=== PATIENT | male | born 1985 | race African-American/Black ===

== ENCOUNTER 2017-07-06 19:53 | Emergency (ER) | payer OTHER ==
[~2017-07-06] VITALS: Ht 160 cm; Wt 59.0 kg
[~2017-07-06 19:53] MED LIST: NAPROSYN500 MG PO; NORCO 5-325 TA1 EACH PO; PENICILLIN VK500 M1 PO
[2017-07-06 19:58] VITALS: BP 130/77
[2017-07-06] MEDS ORDERED: NOHOMEMEDICATIONS (20:03)
[2017-07-06] MEDS ORDERED: AUGMENTIN 875-1 EACH PO (20:15)
== END 2017-07-06 20:26 | disposition home or self-care (01) ==
LOC: M.ERS 19:53
DX: S61.051A Open bite of right thumb without damage to nail, initial encounter (principal); F17.210 Nicotine dependence, cigarettes, uncomplicated; W54.0XXA Bitten by dog, initial encounter; Y93.89 Activity, other specified; Y92.89 Other specified places as the place of occurrence of the external cause; Y99.8 Other external cause status

== ENCOUNTER 2020-02-27 01:55 | Emergency (ER) | payer OTHER ==
[~2020-02-27] VITALS: Ht 170.2 cm; Wt 68.0 kg
--- NOTE | ~2020-02-27 | EKG ---
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
[~2020-02-27 01:55] MED LIST changes: +AUGMENTIN 875-1 EACH PO; +NOHOMEMEDICATIONS
[2020-02-27 02:31] LABS: ABSOLUTE BASOPHILS 0.1 thou/uL (0.0-0.2); ABSOLUTE EOSINOPHILS 0.2 thou/uL (0.0-0.7); ABSOLUTE LYMPHOCYTES 2.3 thou/uL (0.8-5.3); ABSOLUTE MONOCYTES 0.4 thou/uL (0.0-1.2); ABSOLUTE NEUTROPHILS 2.5 thou/uL (1.6-8.1); BASOPHILS 0.9 %; EOSINOPHILS 4.2 %; HEMATOCRIT 45.1 % (42.0-52.0); LYMPHOCYTES 41.6 %; MCH 35.4 pg (26.0-34.0); MCHC 35.5 g/dL (28.0-37.0); MCV 99.7 fL (80.0-100.0); MONOCYTES 7.8 %; MPV 8.7 fl. (7.2-11.1); NUCLEATED RBCS 0 /100WBC; PLATELET COUNT* 220 thou/uL (150-400); POLYS 45.5 %; RBC 4.53 mil/uL (4.50-6.00); RDW-CV 13.3 % (10.5-14.5); WBC 5.6 thou/uL (4.0-11.0)
[2020-02-27 02:40] LABS: APTT 27.3 Seconds (25.0-31.3); PROTIME 10.6 Seconds (9.20-11.50)
[2020-02-27 02:42] LABS: CALCIUM 8.9 mg/dL (8.5-10.1); CREATININE 1.2 mg/dL (0.6-1.3); POTASSIUM 3.8 mmol/L (3.5-5.1)
[2020-02-27 03:03] LABS: ALBUMIN 4.3 g/dL (3.4-5.0); CK-MB MASS 0.9 ng/mL (<0.5-3.6); MAGNESIUM 1.8 mg/dL (1.8-2.4); TOTAL BILIRUBIN 0.4 mg/dL (<0.1-1.0); TOTAL PROTEIN 7.6 g/dL (6.4-8.2)
[2020-02-27 03:26] VITALS: BP 141/77
== END 2020-02-27 03:27 | disposition home or self-care (01) ==
LOC: M.ERS 01:55
PROVIDERS: Family Medicine
DX: R51 Headache (principal); F17.210 Nicotine dependence, cigarettes, uncomplicated